=== PATIENT | female | born 1975 | race Caucasian/White ===

== ENCOUNTER 2022-07-31 10:38 | Emergency (ER) | payer OTHER, MEDICAID, SELFPAY ==
[2022-07-31 10:51] VITALS: O2SAT 97
[2022-07-31 10:52] VITALS: BP 179/99; PULSE 113; O2SAT 96
[2022-07-31 10:55] VITALS: BP 179/99; PULSE 115; RESP 20; TEMP 37; O2SAT 99; BMI 62.6
[2022-07-31 11:00] VITALS: PULSE 111; O2SAT 99
[2022-07-31 11:01] VITALS: BP 193/89; PULSE 110; O2SAT 98
--- NOTE | 2022-07-31 11:01 | ED.RECABL ---
HPI - Recheck/Abnormal Lab/Rx General Chief Complaint: Recheck/Abnormal Lab/Rx Stated Complaint: out of medication, has CHF and diab, acu shameka fail Time Seen by Provider: 07/31/22 10:57 Source: patient Mode of arrival: Ambulatory Limitations: no limitations History of Present Illness HPI narrative: Patient is a 47-year-old female. History of multiple chronic medical issues to include insulin-dependent diabetes and CHF. Is recently new to the area. States she is out of all of her medications for the past week. She has been set up with Medicaid but does not have a primary doctor. Her last prescriptions came from her provider in [place]. She stated she is having lower extremity swelling. She does live in her car. She knows she is been on Lasix in the past. No chest pain. Related Data Previous Rx's Medication Instructions Recorded albuterol sulfate 90 mcg/actuation 2 puff inhalation 6XD PRN 07/31/22 aerosol inhaler shortness of breath or wheezing #8.5 grams amlodipine 10 mg tablet 10 mg PO DAILY #30 tabs 07/31/22 desvenlafaxine 100 mg 100 mg PO DAILY #30 tabs 07/31/22 tablet,extended release 24 hr ferrous sulfate 140 mg (45 mg 140 mg PO DAILY #30 tabs 07/31/22 iron) tablet,extended release furosemide 40 mg tablet (Lasix) 40 mg PO DAILY #60 tabs 07/31/22 insulin glargine 100 unit/mL (3 25 unit (0.25 mL) SUBCUT BID #15 mL 07/31/22 mL) subcutaneous pen (Lantus Solostar U-100 Insulin) insulin lispro 100 unit/mL 12 unit (0.12 mL) SUBCUT TID #15 mL 07/31/22 subcutaneous pen (Humalog KwikPen (U-100) Insulin) ipratropium 0.5 mg-albuterol 3 mg 3 ml inhalation Q20M PRN shortness 07/31/22 (2.5 mg base)/3 mL nebulization of breath or wheezing #90 mL soln liraglutide 0.6 mg/0.1 mL (18 mg/3 1.8 mg (0.3 mL) SUBCUT DAILY #6 mL 07/31/22 mL) subcutaneous pen injector (Victoza 2-Sid) losartan 50 mg tablet 50 mg PO BID #60 tabs 07/31/22 metformin 1,000 mg tablet 1,000 mg PO BID #60 tabs 07/31/22 spironolactone 25 mg tablet 25 mg PO DAILY #30 tabs 07/31/22 Allergies Allergy/AdvReac Type Severity Reaction Status Date / Time amoxicillin Allergy Hives Verified 07/31/22 11:42 tramadol AdvReac Seizure Verified 07/31/22 11:42 Review of Systems Cardiovascular Cardiovascular: Reports system reviewed and no additional complaints, except as documented Respiratory Respiratory: Reports system reviewed and no additional complaints, except as documented Gastrointestinal Gastrointestinal: Reports system reviewed and no additional complaints, except as documented Musculoskeletal Musculoskeletal: Reports system reviewed and no additional complaints, except as documented Integumentary/Breasts Skin/Breast: Reports system reviewed and no additional complaints, except as documented Patient History Medical History Insulin dependent diabetes mellitus Exam Initial Vital Signs Initial Vital Signs: Vital Signs Pulse Oximetry 97 07/31/22 10:51 Const General: No ill appearing HENMT Head: normal to inspection and normocephalic Resp Effort & Inspection: normal respiratory effort Cardio Rate: tachycardic Extrem General: edema Course Vital Signs Vital signs: Vital Signs - 8 hr 07/31/22 10:55 07/31/22 10:51 07/31/22 10:52 Temperature 98.6 F Pulse Rate 115 H Respiratory Rate 20 Blood Pressure 179/99 H 179/99 H Pulse Oximetry 99 97 Oxygen Delivery Method Room Air 07/31/22 10:52 07/31/22 11:00 07/31/22 11:01 Temperature Pulse Rate 113 H 111 H Respiratory Rate Blood Pressure 193/89 H Pulse Oximetry 96 99 Oxygen Delivery Method 07/31/22 11:01 07/31/22 11:57 Temperature Pulse Rate 110 H 107 H Respiratory Rate 19 Blood Pressure 186/87 H Pulse Oximetry 98 97 Oxygen Delivery Method Room Air MDM - Recheck/Abnormal Lab/Rx MDM Narrative Medical decision making narrative: Patient is at her baseline health status. She does have bilateral lower extremity edema. She is not in heart failure. She is no chest pain. No shortness of breath. She is been out of her medications for the past couple weeks. She was either able to produce prior pill bottles, be able to state exactly what medication what dose and how often she takes it or was able to contact her prior pharmacy. I refilled these medications for her and sent them to the pharmacy of her choice. There is no indication for further workup here in the emergency department. She states that she recently was set up with Medicaid and now needs to find a primary doctor. She was given a month's worth of medication with refills so that should be enough for her to find a primary doctor and establish care. She was informed that this is important to do so. She expressed understanding and agreement. Discharge Plan Departure Patient Disposition: Home Clinical Impression: Encounter for medication refill Activity Restrictions/Additional Instructions: It is important that you establish care with a primary care doctor for further refills of your medications. You have multiple chronic issues that do require a primary doctor to manage. Turned to the emergency department for new symptoms. Prescriptions: New albuterol sulfate 90 mcg/actuation HFA aerosol inhaler 2 puff inhalation 6XD PRN (Reason: shortness of breath or wheezing) Qty: 8.5 0RF desvenlafaxine 100 mg tablet extended release 24 hr 100 mg PO DAILY Qty: 30 2RF ferrous sulfate 140 mg (45 mg iron) tablet extended release 140 mg PO DAILY Qty: 30 2RF insulin glargine [Lantus Solostar U-100 Insulin] 100 unit/mL (3 mL) insulin pen 25 unit SUBCUT BID Qty: 15 2RF insulin lispro [Humalog KwikPen Insulin] 100 unit/mL insulin pen 12 unit SUBCUT TID Qty: 15 2RF losartan 50 mg tablet 50 mg PO BID Qty: 60 2RF metformin 1,000 mg tablet 1,000 mg PO BID Qty: 60 2RF amlodipine 10 mg tablet 10 mg PO DAILY Qty: 30 2RF furosemide [Lasix] 40 mg tablet 40 mg PO DAILY Qty: 60 2RF spironolactone 25 mg tablet 25 mg PO DAILY Qty: 30 2RF Victoza 2-Sid 0.6 mg/0.1 mL (18 mg/3 mL) pen injector 1.8 mg SUBCUT DAILY Qty: 6 2RF ipratropium-albuterol 0.5 mg-3 mg(2.5 mg base)/3 mL solution for nebulization 3 ml inhalation Q20M PRN (Reason: shortness of breath or wheezing) Qty: 90 2RF Rx Instructions: for 3 doses Stand Alone Forms: Patient Portal/API
[2022-07-31 11:57] VITALS: BP 186/87; PULSE 107; RESP 19; O2SAT 97
== END 2022-07-31 11:58 | disposition home or self-care (01) ==
PROVIDERS: Emergency Provider Emergency Medicine
DX: Z76.0 Encounter for issue of repeat prescription (principal)
CPT/HCPCS: 99281

== ENCOUNTER 2022-08-05 18:43 | Emergency (ER) | payer OTHER, MEDICAID, SELFPAY ==
[2022-08-05 19:18] VITALS: BP 148/80; PULSE 107; RESP 20; TEMP 36.7; O2SAT 95; BMI 62.6
--- NOTE | 2022-08-05 19:39 | DI.RAD.S_ITS ---
PROCEDURE: XR CHEST 1V INDICATIONS: SOB TECHNIQUE: One view of the chest was acquired. COMPARISON: None. FINDINGS: Surgical changes and devices: None. Lungs and pleura: Lungs are clear. No pleural effusions or pneumothorax. Mediastinum: Mediastinal contours appear normal. Heart size is normal. Bones and chest wall: No suspicious bony lesions. Overlying soft tissues appear unremarkable. IMPRESSION: 1. No acute cardiopulmonary disease. Dictated by: Iván Reich M.D. on 08/05/2022 at 20:12 Approved by: Iván Reich M.D. on 08/05/2022 at 20:13
[2022-08-05 21:24] LABS: Add Manual Diff / Slide Review NO; Alanine Aminotransferase 26 IU/L (<35); Albumin 3.9 g/dL (3.5-5.0); Albumin Globulin Ratio 1.1 (1.0-2.8); Alkaline Phosphatase 132 U/L (38-126); Aspartate Aminotransferase 24 IU/L (14-36); BUN Creatinine Ratio 23.2 (6-22); Basophils Absolute Auto 200 /uL (0-100); Basophils Percent Auto 1.1 % (0-2); Bilirubin Total 0.4 mg/dL (0.2-1.3); Blood Urea Nitrogen 16 mg/dL (7-17); Calcium 8.9 mg/dL (8.4-10.2); Carbon Dioxide 29 mmol/L (22-32); Chloride 100 mmol/L (98-107); Creatine Kinase 38 U/L (30-135); Eosinophils Absolute Auto 200 /uL (0-450); Eosinophils Percent Auto 1.8 % (2-4); Estimated Glomerular Filt Rate > 60 mL/min (>60); Globulin 3.7 g/dL (1.7-4.1); Glucose 192 mg/dL (70-100); HEMOLYSIS 25 (0-50); Hematocrit 37.7 % (36-46); Hemoglobin 12.2 g/dL (12.0-16.0); Lipase 99 U/L (23-300); Lymphocytes Absolute Auto 2100 /uL (1100-4500); Lymphocytes Percent Auto 14.9 % (25-40); Magnesium 1.5 mg/dL (1.6-2.3); Mean Corpuscular HGB Conc 32.4 % (30-36); Mean Corpuscular Hemoglobin 26.8 PG (26-34); Mean Corpuscular Volume 82.8 fL (80-100); Monocytes Absolute Auto 600 /uL (0-900); Monocytes Percent Auto 4.5 % (3-14); Neutrophils Absolute Auto 10700 /uL (1500-7000); Neutrophils Percent Auto 77.7 % (50-75); Platelet Count 311 X10^3/uL (150-400); Potassium 3.9 mmol/L (3.4-5.1); Red Blood Cell Count 4.55 X10^6/uL (4.0-5.2); Red Cell Distribution Width 17.1 % (11.6-14.8); Sodium 135 mmol/L (137-145); Total Protein 7.6 g/dL (6.3-8.2); White Blood Cell Count 13.8 X10^3/uL (4.5-11.0)
[2022-08-05 21:34] VITALS: BP 164/94; PULSE 108; RESP 18; O2SAT 97
[2022-08-05 21:35] LABS: NT-proBNP (BNP-Adult 18+) 32 pg/mL (<125); Troponin I < 0.012 ng/mL (0.01-0.034)
[2022-08-06 00:48] LABS: D Dimer 440 ng/ml (<500)
--- NOTE | 2022-08-06 01:14 | ED.RECABL ---
HPI - Recheck/Abnormal Lab/Rx General Chief Complaint: Recheck/Abnormal Lab/Rx Stated Complaint: chf, swelling, meds not working Time Seen by Provider: 08/05/22 23:14 Source: patient Mode of arrival: Ambulatory Limitations: no limitations History of Present Illness HPI narrative: This is a 47-year-old female with history of diabetes, hypertension, CHF she states she was recently diagnosed in the past year with all of these. She had run out her medication she saw Dr. Beltran here and had her medications refilled on the and states she is restarted them. She is concerned her medications are working she states her legs have been very swollen chronically she restarted her Lasix she states it does not seem to be making much difference and she is not peeing as frequently as she would expect. She denies fevers or chills she denies chest pain or pressure, she states some mild shortness of breath that has been persistent for about a month but not worsened. She states she is had some clear productive sputum was greenish couple weeks ago. She denies nausea or vomiting no diarrhea constipation, no new changes to bowel movements. She denies any urinary symptoms. No vaginal bleeding or discharge. She states her legs feel tight and goes up towards the thighs. She notes that she is currently homeless and sleeping in her car so she seated upright when she is sleeping. She is had prior cholecystectomy, she states she is umbilical hernia that should be repaired but has not but has not been giving her a lot of trouble. She is allergic to tramadol and amoxicillin. No tobacco, no alcohol, denies any illicit. Patient states she was able to refill her medications she states that she has gotten on [place] Medicaid, she states that she is gotten on [place] disability. She does not have a primary care physician. She is currently staying [facility] and states that has been going well and the ranges have been receptive to her being around. Related Data Previous Rx's Medication Instructions Recorded albuterol sulfate 90 mcg/actuation 2 puff inhalation 6XD PRN 07/31/22 aerosol inhaler shortness of breath or wheezing #8.5 grams amlodipine 10 mg tablet 10 mg PO DAILY #30 tabs 07/31/22 desvenlafaxine 100 mg 100 mg PO DAILY #30 tabs 07/31/22 tablet,extended release 24 hr ferrous sulfate 140 mg (45 mg 140 mg PO DAILY #30 tabs 07/31/22 iron) tablet,extended release furosemide 40 mg tablet (Lasix) 40 mg PO DAILY #60 tabs 07/31/22 insulin glargine 100 unit/mL (3 25 unit (0.25 mL) SUBCUT BID #15 mL 07/31/22 mL) subcutaneous pen (Lantus Solostar U-100 Insulin) insulin lispro 100 unit/mL 12 unit (0.12 mL) SUBCUT TID #15 mL 07/31/22 subcutaneous pen (Humalog KwikPen (U-100) Insulin) ipratropium 0.5 mg-albuterol 3 mg 3 ml inhalation Q20M PRN shortness 07/31/22 (2.5 mg base)/3 mL nebulization of breath or wheezing #90 mL soln liraglutide 0.6 mg/0.1 mL (18 mg/3 1.8 mg (0.3 mL) SUBCUT DAILY #6 mL 07/31/22 mL) subcutaneous pen injector ([employer] TVtoza 2-Sid) losartan 50 mg tablet 50 mg PO BID #60 tabs 07/31/22 metformin 1,000 mg tablet 1,000 mg PO BID #60 tabs 07/31/22 spironolactone 25 mg tablet 25 mg PO DAILY #30 tabs 07/31/22 furosemide 40 mg tablet (Lasix) 80 mg PO DAILY 5 days #10 tabs 08/06/22 Allergies Allergy/AdvReac Type Severity Reaction Status Date / Time amoxicillin Allergy Hives Verified 08/05/22 19:25 tramadol AdvReac Seizure Verified 08/05/22 19:25 Review of Systems Review of Systems ROS Unobtainable: All systems reviewed & are unremarkable except as noted in HPI and below Patient History Medical History Insulin dependent diabetes mellitus Social History Smoking Status: Current every day smoker Smoking Status: Current every day smoker tobacco type: cigarettes alcohol intake frequency: 0-2 drinks per day Substance Use Type: does not use Exam Narrative Exam Narrative: GENERAL: Alert and oriented x three, obese female in mild distress. HEENT: Head normocephalic, atraumatic, EOMI, pupils reactive, face symmetric, moist mucous membranes NECK: Supple, full range of motion CARDIOVASCULAR: Regular rate and rhythm without murmurs, rubs or gallops. RESPIRATORY: Breath sounds equal bilaterally, bilateral expiratory wheezes upper and lower, rales or rhonchi. No rales, no tachypnea. ABDOMEN: Soft, nontender. Normoactive bowel sounds all 4 quadrants. No guarding or rebound, rigidity, no mass : No CVA tenderness EXTREMITIES: Normal range of motion, no clubbing, patient has trace bilateral edema. Neurovascularly intact NEUROLOGICAL: Cranial nerves II through XII grossly intact. Moving all extremities SKIN: Warm, dry, no petechiae, no rashes or lesions. Initial Vital Signs Initial Vital Signs: Vital Signs Temperature 98.1 F 08/05/22 19:18 Pulse Rate 107 H 08/05/22 19:18 Respiratory Rate 20 08/05/22 19:18 Blood Pressure 148/80 H 08/05/22 19:18 Pulse Oximetry 95 08/05/22 19:18 Oxygen Delivery Method Room Air 08/05/22 19:18 Course Orders Ordered: ED Orders 08/06/22 01:52 Consult to SPREADING MACHINE OPERATOR - Spreading Machine Operator Stat Discontinued Medications Albuterol (Albuterol Hfa Prepack) 1 box MISC SEEINSTR ONE Stop: 08/06/22 01:42 Last Admin: 08/06/22 01:45 Dose: 1 box Documented By: HNG Vital Signs Vital signs: Vital Signs - 8 hr 08/06/22 01:55 Pulse Rate 101 H Respiratory Rate 20 Blood Pressure 144/93 H Pulse Oximetry 96 Oxygen Delivery Method Room Air MDM - Recheck/Abnormal Lab/Rx Lab Data 08/05/22 21:00 08/05/22 21:00 Labs: Lab Results 08/05/22 08/05/22 08/05/22 Range/Units 21:00 21:00 21:00 WBC 13.8 H (4.5-11.0) X10^3/uL RBC 4.55 (4.0-5.2) X10^6/uL Hgb 12.2 (12.0-16.0) g/dL Hct 37.7 (36-46) % MCV 82.8 (80-100) fL MCH 26.8 (26-34) PG MCHC 32.4 (30-36) % RDW 17.1 H (11.6-14.8) % Plt Count 311 (150-400) X10^3/uL Neut % (Auto) 77.7 H (50-75) % Lymph % (Auto) 14.9 L (25-40) % Brooks % (Auto) 4.5 (3-14) % Eos % (Auto) 1.8 L (2-4) % Baso % (Auto) 1.1 (0-2) % Neut # (Auto) 12541 H (5660-9999) /uL Lymph # (Auto) 2100 (6318-5006) /uL Brooks # (Auto) 600 (0-900) /uL Eos # (Auto) 200 (0-450) /uL Baso # (Auto) 200 H (0-100) /uL D-Dimer (<500) ng/ml Sodium 135 L (137-145) mmol/L Potassium 3.9 (3.4-5.1) mmol/L Chloride 100 (98-107) mmol/L Carbon Dioxide 29 (22-32) mmol/L BUN 16 (7-17) mg/dL Creatinine 0.69 (0.52-1.04) mg/dL Estimated GFR > 60 (>60) mL/min BUN/Creatinine Ratio 23.2 H (6-22) Glucose 192 H (70-100) mg/dL Calcium 8.9 (8.4-10.2) mg/dL Magnesium 1.5 L (1.6-2.3) mg/dL Total Bilirubin 0.4 (0.2-1.3) mg/dL AST 24 (14-36) IU/L ALT 26 (<35) IU/L Alkaline Phosphatase 132 H (38-126) U/L Total Creatine Kinase 38 (30-135) U/L CK-MB (CK-2) TNP CK-MB (CK-2) Rel Index TNP Troponin I < 0.012 (0.01-0.034) ng/mL NT-Pro-B Natriuret Pep 32 (<125) pg/mL Total Protein 7.6 (6.3-8.2) g/dL Albumin 3.9 (3.5-5.0) g/dL Globulin 3.7 (1.7-4.1) g/dL Albumin/Globulin Ratio 1.1 (1.0-2.8) Lipase 99 (23-300) U/L 08/06/22 Range/Units 00:15 WBC (4.5-11.0) X10^3/uL RBC (4.0-5.2) X10^6/uL Hgb (12.0-16.0) g/dL Hct (36-46) % MCV (80-100) fL MCH (26-34) PG MCHC (30-36) % RDW (11.6-14.8) % Plt Count (150-400) X10^3/uL Neut % (Auto) (50-75) % Lymph % (Auto) (25-40) % Brooks % (Auto) (3-14) % Eos % (Auto) (2-4) % Baso % (Auto) (0-2) % Neut # (Auto) (7825-7261) /uL Lymph # (Auto) (9981-5850) /uL Brooks # (Auto) (0-900) /uL Eos # (Auto) (0-450) /uL Baso # (Auto) (0-100) /uL D-Dimer 440 (<500) ng/ml Sodium (137-145) mmol/L Potassium (3.4-5.1) mmol/L Chloride (98-107) mmol/L Carbon Dioxide (22-32) mmol/L BUN (7-17) mg/dL Creatinine (0.52-1.04) mg/dL Estimated GFR (>60) mL/min BUN/Creatinine Ratio (6-22) Glucose (70-100) mg/dL Calcium (8.4-10.2) mg/dL Magnesium (1.6-2.3) mg/dL Total Bilirubin (0.2-1.3) mg/dL AST (14-36) IU/L ALT (<35) IU/L Alkaline Phosphatase (38-126) U/L Total Creatine Kinase (30-135) U/L CK-MB (CK-2) CK-MB (CK-2) Rel Index Troponin I (0.01-0.034) ng/mL NT-Pro-B Natriuret Pep (<125) pg/mL Total Protein (6.3-8.2) g/dL Albumin (3.5-5.0) g/dL Globulin (1.7-4.1) g/dL Albumin/Globulin Ratio (1.0-2.8) Lipase (23-300) U/L Imaging Data Chest x-ray: Radiologist's Impression: [address] [address] XRay Report Signed Patient: Tiffanie Dior MR#: [id number] : 1975 Acct:[id number] Age/Sex: 47 / F Date of Service: 08/05/22 Loc: ED Accession Number: [id number] ?? Procedure: XR chest 1V Ordering Provider: Justin Beltran D.O. PROCEDURE:? XR CHEST 1V ? INDICATIONS:? SOB ? TECHNIQUE:? One view of the chest was acquired.? ? COMPARISON:? None. ? FINDINGS:? ? Surgical changes and devices:? None.? ? Lungs and pleura:? Lungs are clear.? No pleural effusions or pneumothorax.? ? Mediastinum:? Mediastinal contours appear normal.? Heart size is normal.? ? Bones and chest wall:? No suspicious bony lesions.? Overlying soft tissues appear unremarkable.? ? IMPRESSION:? ? 1.? No acute cardiopulmonary disease. ? ? ? Dictated by: Iván Reich M.D. on 08/05/2022 at 20:12 ? ? Approved by: Iván Reich M.D. on 08/05/2022 at 20:13 ECG Data Attestation: I personally reviewed and interpreted this ECG as follows: Interpretation: Rate of 95 TX 152 QRS is 78 [address]TC [address] No acute ST elevation or depression noted. No prior for comparison. MDM Narrative Medical decision making narrative: This is a 47-year-old female with diabetes, hypertension dyslipidemia who states that she has not improved after restarting her medications about 4 days ago. Patient states that she did restart medication she states she was off them for about a week. She does have some barriers to care she is homeless, she states she is gotten [place] Medicaid and disability but also states the pharmacies would not recognize her. Discussed with patient she does not have any SI or psychiatric concerns at this time. She was wheezy she does open to a breathing treatment she has not albuterol that was prescribed but states she does not want any steroids it gives her thrush. We discussed that this isn't likely the cause of her swelling she does not appear to be in renal failure, does not appear to be in CHF today I suspect some of this is dependent edema and she sleeping in her vehicle with her legs down regularly. CBC, CMP were negative, dimer is negative, back, trope LFTs are negative as well as chest x-ray. Patient has some mild swelling bilaterally. Patient was open to having her SPREADING MACHINE OPERATOR reach out she has a cell phone and states she has access. We discussed maybe bumping up her Lasix a little bit this may be helpful and compression. Discharge Plan Departure Patient Disposition: Home Clinical Impression: Exacerbation of reactive airway disease Instructions: DI for Dependent Edema Activity Restrictions/Additional Instructions: Please follow up with primary care, our social sciences instructor will try to reach out to you in the next 1-2 days to see if they can help facilitate this. Continue your medications that Dr. Beltran prescribed. You can increase your Lasix, prescription was sent for some additional you can take 80 mg (2 tablets) for 5 days and then return to 40mg once daily. Prescription sent to [facility] in [place] Use albuterol every 4-6 hours as needed. Please return for fevers, new or worsening chest pain, shortness of breath, lightheadedness or passing out increasing swelling of extremities, persistent vomiting or other new or concerning changes. Prescriptions: New furosemide [Lasix] 40 mg tablet 80 mg PO DAILY 5 Days Qty: 10 0RF No Action albuterol sulfate 90 mcg/actuation HFA aerosol inhaler 2 puff inhalation 6XD PRN (Reason: shortness of breath or wheezing) Qty: 8.5 0RF desvenlafaxine 100 mg tablet extended release 24 hr 100 mg PO DAILY Qty: 30 2RF ferrous sulfate 140 mg (45 mg iron) tablet extended release 140 mg PO DAILY Qty: 30 2RF insulin glargine [Lantus Solostar U-100 Insulin] 100 unit/mL (3 mL) insulin pen 25 unit SUBCUT BID Qty: 15 2RF insulin lispro [Humalog KwikPen Insulin] 100 unit/mL insulin pen 12 unit SUBCUT TID Qty: 15 2RF losartan 50 mg tablet 50 mg PO BID Qty: 60 2RF metformin 1,000 mg tablet 1,000 mg PO BID Qty: 60 2RF amlodipine 10 mg tablet 10 mg PO DAILY Qty: 30 2RF furosemide [Lasix] 40 mg tablet 40 mg PO DAILY Qty: 60 2RF spironolactone 25 mg tablet 25 mg PO DAILY Qty: 30 2RF Victoza 2-Sid 0.6 mg/0.1 mL (18 mg/3 mL) pen injector 1.8 mg SUBCUT DAILY Qty: 6 2RF ipratropium-albuterol 0.5 mg-3 mg(2.5 mg base)/3 mL solution for nebulization 3 ml inhalation Q20M PRN (Reason: shortness of breath or wheezing) Qty: 90 2RF Rx Instructions: for 3 doses Stand Alone Forms: Patient Portal/API
[2022-08-06] MEDS: ALBUTEROL HFA PREPACK 1 BOX MISC (01:45)
[2022-08-06 01:55] VITALS: BP 144/93; PULSE 101; RESP 20; O2SAT 96
--- NOTE | 2022-08-09 17:50 | CM.SWNOTE ---
LABOR UNION BUSINESS REPRESENTATIVE f/u note LABOR UNION BUSINESS REPRESENTATIVE calls patient and leaves on 08/06/22 regarding patient's recent ED encounter. At this time, patient has not called back to return call. LABOR UNION BUSINESS REPRESENTATIVE to offer resources if patient returns call. Mita Chauhan, VERIFYING SPECIALIST
== END 2022-08-06 02:04 | disposition home or self-care (01) ==
PROVIDERS: Emergency Medicine; Emergency Provider Emergency Medicine
DX: J45.901 Unspecified asthma with (acute) exacerbation (principal); R06.02 Shortness of breath
CPT/HCPCS: 36415; 71045; 80053; 82550; 83690; 83735; 83880; 84484; 85025; 85379; 93005; 99283; 99284